=== PATIENT | male | born 1990 | race Caucasian/White ===

== ENCOUNTER 2017-03-03 17:43 | Emergency (ER) | payer SELFPAY ==
--- NOTE | 2017-03-04 09:16 | ER ---
ADMIT: 03/03/2017 RM/LOC: ER [facility] MR#: [id number] [facility] [id number] [place], [place] [id number] [address] [place] [address] Emergency Room Report SEX: M AGE: 26 : 1990 DATE: 03/03/2017 HISTORY OF PRESENT ILLNESS: A 26-year-old [place], presents to the emergency room with shortness of breath for 3 weeks, now continues in the ER. He is unable to catch his breath. Pain on inspiration. He does say that he denies any issue with trauma. PAST MEDICAL HISTORY: Totally negative. He had hand surgery and T and A. PHYSICAL EXAMINATION: VITAL SIGNS: Blood pressure 115/67, heart rate 62, respirations 16, temp is 96.9, and O2 sats 100%. GENERAL: He is alert and oriented. CHEST: He points to the right lower chest, last rib. ABDOMEN: Nontender. SKIN: Good color. EXTREMITIES: Well perfused, oriented x4. CLINICAL IMPRESSION: Costochondritis. Given ketorolac which improved his symptoms. Instructions given for followup and re-assessment by primary provider. KAYLA Back / Rolf Dunn MD / ariella JOB #: [id number] CC: Luis Bhatt MD, Attending Physician Javid Ortega MD, Family Physician
== END 2017-03-03 19:40 | disposition home or self-care (01) ==
LOC: ER 17:43
DX: M94.0 Chondrocostal junction syndrome [Tietze] (principal); Z90.89 Acquired absence of other organs; Z98.890 Other specified postprocedural states